=== PATIENT | male | born 1945 | race Hispanic/Latino ===

== ENCOUNTER 2016-09-03 11:02 | Day surgery (SDC) | payer OTHER, MEDICARE ==
[~2016-09-03] VITALS: Ht 172.7 cm; Wt 68.2 kg
[~2016-09-03 11:02] MED LIST: PANT20T PO
[2016-09-03] MEDS ORDERED: fentaNYL-PF 50 mCg/mL 2 mL Inj IVPUSH PRN ×2 (11:20→11:40)
[2016-09-03 11:32] VITALS: BP 151/77; PULSE 68; RESP 16; O2SAT 98
[2016-09-03] MEDS ORDERED: Sodium Chloride LOK Flush 10 mL Syringe IVFLUSH SCH ×2 (12:00→16:30)
[2016-09-03 12:46] VITALS: BP 144/70; PULSE 64; O2SAT 94
[2016-09-03] MEDS ORDERED: 0.9% Sodium Chloride 1,000 ML ONE (12:47)
[2016-09-03] MEDS ORDERED: fentaNYL-PF 50 mCg/mL 2 mL Inj ONE (12:47)
[2016-09-03 12:56] VITALS: BP 140/69; PULSE 68; O2SAT 96
--- NOTE | 2016-09-03 13:14 | ENDO ---
[address] [address] ENDOSCOPY PROCEDURE PATIENT: LOULOU WEBER : 1945 MR#: [id number] ADMIT: 09/03/2016 JOB ID: [id number] DATE OF SERVICE: 09/03/2016 PRIMARY CARE PHYSICIAN: None identified. PROCEDURE: Esophagogastroduodenoscopy with biopsies. INDICATION: The patient is a 71-year-old man who has been experiencing abdominal pain. He recently underwent a CT scan to evaluate for this and was noted to have esophageal thickening. He subsequently was placed on PPI with good symptomatic resolution. However, he was referred for consideration of upper endoscopy to rule out malignancy. EQUIPMENT: GIF-H180J. SEDATION: 1. Fentanyl 125 mcg. 2. Versed 25 mg. (This sedation was used for both upper and lower endoscopy). COMPLICATIONS: None identified. PROCEDURE INFORMATION: The patient was brought into the endoscopy suite and placed in the left lateral decubitus position. Sedation was achieved using the above-stated medications with the addition of oxygen administered via nasal cannula. The endoscope was inserted through the mouth and slowly directed under direct visualization down into the stomach and into the duodenum. There was mild gastritis at the antrum. There was also mild duodenitis. A biopsy was taken of the antral mucosa using cold forceps to rule out H. pylori. Retroflexed views were obtained in the stomach. He had a grade 1 flap valve. The GE junction was at 37 cm. The scope was then slowly withdrawn. There was LA grade 1 esophagitis in the distal esophagus. A biopsy of this was taken at the GE junction. The scope was then withdrawn, and the colonoscopy was begun. ENDOSCOPIC FINDINGS: 1. Mild gastritis and duodenitis 2. LA grade 1 esophagitis RECOMMENDATIONS: 1. Continue PPI 2. Await Histopathology MTDD
--- NOTE | 2016-09-03 13:33 | ENDO ---
[address] [address] ENDOSCOPY PROCEDURE PATIENT: LOULOU WEBER : 1945 MR#: [id number] ADMIT: 09/03/2016 JOB ID: [id number] DATE OF PROCEDURE: 09/03/2016 PROCEDURE: Colonoscopy. INDICATION: The patient is a 71-year-old man who has not had a screening colonoscopy in more than 10 years. He was coming for upper endoscopy and agreed to undergo screening at the same time. EQUIPMENT: Syntricity-H190DL. SEDATION: 1. Versed 5 mg. 2. Fentanyl 125 mcg. (This sedation was used for both upper and lower endoscopy). PREPARATION QUALITY: Fair. COMPLICATIONS: None identified. PROCEDURE INFORMATION: After completing upper endoscopy, the gurney was rotated and the colonoscopy begun. Digital rectal exam was performed. He had some skin tags but no other abnormalities. The scope was inserted and slowly passed under direct visualization through to the cecum. The appendiceal orifice, as well as the ileocecal valve, were both identified and photographed. The ileocecal valve was intubated and the terminal ileum photographed. The scope was then slowly withdrawn. His colon was quite redundant but otherwise was unremarkable. Retroflexed views were obtained in the rectum and showed redundant rectal tissue but no significant internal hemorrhoids. Scope was then removed. FINDINGS: Normal colonoscopy. RECOMMENDATIONS: Repeat screening colonoscopy in 10 years can be considered if the patient remains in excellent health.
--- NOTE | 2016-09-04 13:56 | PATH ---
SURGICAL PATHOLOGY Attending Physician:Selvin Torrez MD CASE STATUS: Signed Out PATIENT NAME: LOULOU WEBER PID: [id number] : 1945 DATE COLLECTED:09/03/2016 22:12 SPECIMEN: 1: Stomach, Antrum, Biopsy 2: Esophagus, Biopsy CLINICAL HISTORY: 1). ANTRUM BIOPSY, RULE OUT H.PYLORI 2). GE JUNCTION BIOPSY FINAL DIAGNOSIS: 1.ANTRUM BIOPSY: MILD CHRONIC GASTRITIS INVOLVING ANTRAL MUCOSA. Negative for evidence of Helicobacter. Negative for intestinal metaplasia. Negative for dysplasia and malignancy. 2.GASTROESOPHAGEAL JUNCTION BIOPSY: FRAGMENTS OF SQUAMOUS EPITHELIUM WITH PROMINENT REACTIVE CHANGES AND RARE INTRAEPITHELIAL EOSINOPHILS, ALL CONSISTENT WITH CHRONIC REFLUX. No gastric-type epithelium identified. Negative for dysplasia and malignancy. ICD10 code K21.0 GROSS DESCRIPTION: The specimen is received in two formalin filled containers labeled with the patient's name. 1). The specimen is sublabeled "antrum" and consists of a 0.3 x 0.3 x 0.2 CM portion of tissue which is entirely submitted in cassette 1A. 2). The specimen is sublabeled " GEJ " and consists of a 0.3 x 0.3 x 0.2 CM portion of tissue which is entirely submitted in cassette 2A. 09/03/2016 DAC MICRO DESCRIPTION: See diagnosis. ICD-9 CODES: CPT CODES: 1: 11905 2: 20175 Electronically Signed Out Maycol Monteiro MD [facility] Pathology [facility] [address], [place] [address] Technical component performed at [facility], [facility] [address], [place], [address]
== END 2016-09-03 23:59 | disposition home or self-care (01) ==
LOC: END 11:02
PROVIDERS: ATTEND General Practice
DX: Z12.11 Encounter for screening for malignant neoplasm of colon (principal); K21.0 Gastro-esophageal reflux disease with esophagitis; K29.80 Duodenitis without bleeding; K29.70 Gastritis, unspecified, without bleeding
CPT/HCPCS: 43239; 99153; G0121; G0500; J2250; J3010; J7030